=== PATIENT | male | born 1985 | race Caucasian/White ===

== ENCOUNTER 2025-02-01 08:09 | Outpatient (CLI) | payer SELFPAY ==
[2025-02-01 17:07] LABS: Chlamydia DNA Amplified* NOT DETECTED (No Detected); GC DNA Amplified* NOT DETECTED (No Detected)
== END 2025-02-01 08:10 | disposition home or self-care (01) ==
PROVIDERS: PCP Nurse Practitioner Family; Visit Provider Nurse Practitioner Family
DX: Z11.3 Encounter for screening for infections with a predominantly sexual mode of transmission (principal); R53.83 Other fatigue; Z13.6 Encounter for screening for cardiovascular disorders; Z13.0 Encounter for screening for diseases of the blood and blood-forming organs and certain disorders involving the immune mechanism
CPT/HCPCS: 80053; 80061; 84403; 84443; 85025; 86592; 86703; 86803; 87491; 87529; 87591